=== PATIENT | male | born 2000 | race Caucasian/White ===

== ENCOUNTER 2023-08-15 20:56 | Outpatient (OUT) | payer OTHER, SELFPAY | END 2023-08-15 20:57 | disposition home or self-care (01) | LOC: SLEEP 20:56 | PROVIDERS: PCP Nurse Practitioner Family; Visit Provider Nurse Practitioner Family | DX: G47.33 Obstructive sleep apnea (adult) (pediatric) (principal); R41.89 Other symptoms and signs involving cognitive functions and awareness | CPT/HCPCS: 95810 ==

== ENCOUNTER 2023-09-05 20:49 | Outpatient (OUT) | payer OTHER, SELFPAY | END 2023-09-05 20:50 | disposition home or self-care (01) | LOC: SLEEP 20:49 | PROVIDERS: PCP Nurse Practitioner Family; Visit Provider Nurse Practitioner Family | DX: G47.33 Obstructive sleep apnea (adult) (pediatric) (principal) | CPT/HCPCS: 95811 ==